=== PATIENT | male | born 1955 | race Two or more races ===

== ENCOUNTER 2019-05-30 12:13 | Inpatient (IN) | payer MEDICAID ==
[~2019-05-30] VITALS: Ht 170.2 cm; Wt 86.9 kg
[2019-05-30 13:45] LABS: Basophils # (auto) 0.1 10 ^3/uL (0-0.2); Eosinophils # (auto) 0.2 10 ^3/uL (0-0.8); Eosinophils % (auto) 2.6 % (0.0-7.0); Hematocrit 38.7 % (41.0-53.0); Hemoglobin 13.2 g/dL (13.5-17.5); Lymphocytes # (auto) 1.9 10 ^3/uL (0.4-5.4); Lymphocytes % (auto) 20.5 % (10.0-50.0); Mean Corpuscular Hemoglobin 31.1 pg (28.0-32.0); Mean Corpuscular Hgb Conc. 34.1 g/dL (32.0-36.0); Mean Corpuscular Volume 91.2 fL (80.0-100.0); Monocytes # (auto) 0.7 10 ^3/uL (0-1.3); Monocytes % (auto) 7.7 % (0.0-12.0); Neutrophils # (auto) 6.4 10 ^3/uL (1.6-8.6); Neutrophils % (auto) 68.2 % (37.0-80.0); Platelet Count (auto) 243 10^3/uL (140-450); Red Blood Cells 4.25 10^6/uL (4.5-5.90); Red Cell Distribution Width 15.3 % (11.8-14.3); White Blood Cell 9.3 10^3/uL (4.4-10.8)
[2019-05-30] MEDS ORDERED: METOPROLOL TARTRATE 1MG/1ML-5ML VIAL IV ONE ×3 (14:14→15:45)
[2019-05-30 14:29] LABS: Albumin 2.9 g/dL (3.4-5.0); BUN/Creatinine Ratio 21.4; Calcium 8.8 mg/dL (8.5-10.1); Potassium 4.9 mmol/L (3.5-5.1)
[2019-05-30] MEDS ORDERED: NITROGLYCERIN 0.4 MG SL TAB SL PRN (14:30)
[2019-05-30] MEDS ORDERED: ONDANSETRON HCL 4 MG/2 ML VIAL IV PRN (14:30)
[2019-05-30] MEDS ORDERED: DEXTROSE (50%) 50ML SYRG IV PRN ×2 (14:30→15:45)
[2019-05-30] MEDS ORDERED: ACETAMINOPHEN 500 MG TAB PO PRN (14:30)
[2019-05-30] MEDS ORDERED: HYDROcodone-ACET 5/325MG TAB PO PRN (14:30)
[2019-05-30] MEDS ORDERED: MORPHINE SULF INJ 2 MG/ML SYRINGE 1ML IV PRN ×2 (14:30)
[2019-05-30] MEDS ORDERED: METOPROLOL TARTRATE 25 MG TAB PO SCH (14:30)
[2019-05-30 14:34] LABS: Bilirubin, Total 0.6 mg/dL (0.2-1.0); Total Protein 6.9 g/dL (6.4-8.2)
[2019-05-30] MEDS ORDERED: cefTRIAXone 1GM/50ML D5W 50 ML IV ONE (14:45)
[2019-05-30] MEDS: ASPirin 81 mg TAB PO SCH (14:49)
[2019-05-30 14:53] LABS: Cholesterol 167 mg/dL (< 200)
[2019-05-30 14:56] LABS: HDL Cholesterol 58 mg/dL (40-59); LDL Cholesterol 88 mg/dL (< 100); Triglycerides 82 mg/dL (< 150)
[2019-05-30] MEDS: InsuLIN REG 1unit/0.01ml Soln (100units/ml) SC SCH ×2 (15:58→20:38)
[2019-05-30] MEDS: ACCU-CHEK COMFORT CURVE STRIP VI SCH ×2 (15:59→20:37)
[2019-05-30] MEDS ORDERED: DIGOXIN (250MCG/ML) 2 ML AMPULE IV ONE (16:45)
[2019-05-30] MEDS ORDERED: ACCU-CHEK COMFORT CURVE STRIP VI SCH (17:00)
[2019-05-30] MEDS ORDERED: InsuLIN REG 1unit/0.01ml Soln (100units/ml) SC SCH (17:00)
[2019-05-30] MEDS ORDERED: AMIODARONE HCL 150 MG in D5W 5% 100 ML IV ONE (17:15)
[2019-05-30] MEDS ORDERED: MAGNESIUM SULFATE 1GM/100ML 100 ML IV ONE (18:00)
[2019-05-30] MEDS ORDERED: AMIODARONE 450mg/250ml AE 250 ML IV SCH (18:01)
[2019-05-30] MEDS ORDERED: FUROSEMIDE 20 MG/2 ML VIAL IV ONE (18:15)
--- NOTE | 2019-05-30 18:42 | NUR ---
Pt Arrived on Unit Pt arrived on unit from ED. Pt was able to ambulate to bed without difficulty. Pt is currently a/ox4 with no s/s of distress or SOB. Pt is currently on amiodarone drip at 16mL/HR. Safety measures maintained with call light within reach, bed in lowest position and side rails up. Will continue to monitor.
[2019-05-30 18:45] VITALS: BP 129/90
--- NOTE | 2019-05-30 18:57 | NUR ---
Wound Pictures Wound pictures taken of pt's L calf for reference. Placed Wound consult.
--- NOTE | 2019-05-30 19:02 | NUR ---
Admission Unable to complete admission due to lack of time. Will endorse to NOC RN.
[2019-05-30 19:29] VITALS: BP 110/60
--- NOTE | 2019-05-30 19:31 | NUR ---
Opening Shift Note Received report and assumed care of patient. Patient is awake and alert. No signs or symptoms of distress noted, patient currently denies pain. Instructed patient on plan of care and to call for assistance as needed. Will continue to monitor.
--- NOTE | 2019-05-30 20:24 | NUR ---
Heart Rate Status Spoke with Hospitalist regarding patient heart rate status from afib 120s-130s to sinus rhythm 60s. Patient is currently on Amiodarone drip, no new orders at this time. Will continue to monitor.
[2019-05-30 21:52] VITALS: BP 110/60
[2019-05-30] MEDS: CARVEDILOL 12.5 MG TAB PO SCH (22:00)
[2019-05-30] MEDS: ATORVASTATIN 20 MG TAB PO SCH (22:20)
[2019-05-30] MEDS: CLINDAMYCIN 300MG IV 50 ML IV SCH (23:34)
[2019-05-31] MEDS: AMIODARONE 450mg/250ml AE 250 ML IV SCH ×2 (00:15→15:18)
[2019-05-31] MEDS: ACCU-CHEK COMFORT CURVE STRIP VI SCH ×6 (00:18→20:25)
[2019-05-31] MEDS: InsuLIN REG 1unit/0.01ml Soln (100units/ml) SC SCH ×6 (03:52→20:26)
[2019-05-31 04:52] VITALS: BP 121/71
[2019-05-31 05:49] LABS: Basophils # (auto) 0 10 ^3/uL (0-0.2); Basophils % (auto) 0.4 % (0.0-2.0); Eosinophils # (auto) 0.4 10 ^3/uL (0-0.8); Eosinophils % (auto) 4.1 % (0.0-7.0); Hematocrit 36.7 % (41.0-53.0); Hemoglobin 12.7 g/dL (13.5-17.5); Lymphocytes # (auto) 2.6 10 ^3/uL (0.4-5.4); Lymphocytes % (auto) 29.1 % (10.0-50.0); Mean Corpuscular Hemoglobin 30.8 pg (28.0-32.0); Mean Corpuscular Hgb Conc. 34.4 g/dL (32.0-36.0); Mean Corpuscular Volume 89.5 fL (80.0-100.0); Monocytes # (auto) 0.7 10 ^3/uL (0-1.3); Monocytes % (auto) 8.1 % (0.0-12.0); Neutrophils # (auto) 5.2 10 ^3/uL (1.6-8.6); Neutrophils % (auto) 58.3 % (37.0-80.0); Nucleated Red Blood Cells % 0.1 %; Platelet Count (auto) 232 10^3/uL (140-450); Red Blood Cells 4.11 10^6/uL (4.5-5.90); Red Cell Distribution Width 15.3 % (11.8-14.3); White Blood Cell 8.9 10^3/uL (4.4-10.8)
[2019-05-31 06:02] LABS: BUN/Creatinine Ratio 23.9; Calcium 8.5 mg/dL (8.5-10.1); Potassium 4.6 mmol/L (3.5-5.1)
[2019-05-31] MEDS: CLINDAMYCIN 300MG IV 50 ML IV SCH ×3 (06:02→21:39)
--- NOTE | 2019-05-31 07:16 | NUR ---
OPENING SHIFT NOTE Assumed care of patient from poultry breeder RN. Patient is alert and oriented x4, no signs of distress noted. Patient was updated on the plan of care and verbalized understanding. Bed is locked, in the lowest position, side rails up x2 and call light is in reach. Patient was encouraged to call for assistance as needed.
--- NOTE | 2019-05-31 08:10 | NUR ---
PAGED JOVANNY regarding patient HR and amiodarone drip. Patient HR is in the 50s. Patient was scheduled for a stress test today, stress lab called and said they would not be able to do the test because patient is on the amiodarone drip. Awaiting call back from Jovanny.
[2019-05-31] MEDS: cefTRIAXone 1GM/50ML D5W 50 ML IV SCH (08:39)
[2019-05-31 09:27] VITALS: BP 110/69
--- NOTE | 2019-05-31 09:31 | NUR ---
PAGEIrma PETTY to update on patient status. awaiting call back.
[2019-05-31] MEDS: CARVEDILOL 12.5 MG TAB PO SCH (10:00)
[2019-05-31] MEDS: FLORASTOR (S. BOULARDII) 250 MG CAP PO SCH (10:04)
[2019-05-31] MEDS: ASPirin 81 mg TAB PO SCH (10:04)
[2019-05-31] MEDS: FAMOTIDINE 20 MG TAB PO SCH (10:04)
[2019-05-31] MEDS: FUROSEMIDE 100 MG/10ML VIAL IV SCH (10:04)
[2019-05-31] MEDS: CLOPIDOGREL BISULFATE 75 MG TAB PO SCH (10:05)
--- NOTE | 2019-05-31 10:30 | NUR ---
WOUND CARE NOTE: IN TO SEE PATIENT AT THIS TIME PER WOUND CARE CONSULT REQUEST. PATIENT RECENTLY ADMITTED TO [facility] WITH DIAGNOSIS OF AFIB/RVR. PATIENT HAS CURRENT SAUL SCORE OF 18. PATIENT NOTED TO HAVE A SMALL VENOUS STASIS ULCER TO THE LEFT MEDIAL CALF. WOUND PHOTO TAKEN BY BEDSIDE NURSE AT THAT TIME. PATIENT STATES THAT HE NOTICED THE WOUND SEVERAL WEEKS AGO. HE DENIES EVER HAVING STASIS ULCERS IN THE PAST. PATIENT'S WOUND MEASURES 1 X 1 CM. WOUND IS FULL THICKNESS, PALE RED WOUND BED, SCANT SEROUS DRAINAGE. PERIWOUND IS PINK, MILD EDEMA NOTED. APPLIED THERAHONEY, OPTIFOAM GENTLE DRESSING. ELEVATED LEFT CALF UP ONTO PILLOW FOR EDEMA CONTROL. PATIENT EDUCATED IN WOUND CARE AT THIS TIME, PATIENT VERBALIZED UNDERSTANDING. NO OTHER SKIN INTEGRITY ISSUES NOTED. RECOMMEND: ELEVATION OF LLE UP ONTO PILLOWS, Q 3 DAY/PRN DRESSING CHANGE TO WOUND ON LLE, DIETARY CONSULT, SKIN/WOUND CARE PLAN, CONTINUED MONITORING BY WOUND CARE TEAM. Addendum: 05/31/19 at 1534 by Denice Mayo RN Amended: Links added.
--- NOTE | 2019-05-31 10:49 | NUR ---
Pt is currently listed as having no current insurance. Pt states they are currently unemployed. Discussed with patient eligibility options for medical coverage bases on their on their current situation . Pt referred 5to Kee Mchugh, [facility] Consulant to assist with process for [facility] insurance coverage. Advised pt that additional information regarding d/c planning could be provided prior 5to their discharge. Will follow up with Kee regarding the insurance status. Addendum: 05/31/19 at 1057 by KENDAL WOOD SS Amended: Links added.
--- NOTE | 2019-05-31 12:35 | NUR ---
CALL FROM [facility] Patient is unable to have stress test done today, patient is currently receiving amiodarone IV drip. Stress test will be rescheduled for tomorrow.
[2019-05-31 12:41] VITALS: BP 121/75
--- NOTE | 2019-05-31 13:02 | NUR ---
MARIFER AT BEDSIDE updated on the patient status, plan of care reviewed with the patient and verbalized understanding. New orders for diet, no other orders received.
--- NOTE | 2019-05-31 15:18 | NUR ---
IV INFILTRATION when changing the amiodarone iv bag as ordered, hard swelling noted on patient's left forearm at IV site. IV infusion stopped, changed to right forearm IV site. Called pharmacy for amiodarone infiltration protocol. Pharmacist recommended cold compress for 20 minutes, will follow through.
--- NOTE | 2019-05-31 15:22 | NUR ---
IV removal IV to the left forearm discontinued with clean sterile technique, catheter fully intact. Pressure dressing applied to site. Patient tolerated well.
[2019-05-31 17:05] VITALS: BP 119/58
[2019-05-31] MEDS ORDERED: CARVEDILOL 12.5 MG TAB PO SCH (18:00)
--- NOTE | 2019-05-31 19:19 | NUR ---
CLOSING SHIFT NOTE Care endorsed to overnight cashier RN. Patient is eating dinner, no signs of distress noted.
--- NOTE | 2019-05-31 21:10 | NUR ---
IV removal/insertion 22g IV to the right forearm reddened. Discontinued 22g IV with clean technique, catheter tip fully intact. Pressure dressing applied to site. NOTE: Inserted 20g IVs to the Right and Left forearm. Patient tolerated procedure well.
[2019-05-31] MEDS: ATORVASTATIN 20 MG TAB PO SCH (21:39)
[2019-05-31 22:00] VITALS: BP 134/82
[2019-06-01] MEDS: ACCU-CHEK COMFORT CURVE STRIP VI SCH ×4 (00:43→11:55)
[2019-06-01] MEDS: InsuLIN REG 1unit/0.01ml Soln (100units/ml) SC SCH ×4 (04:00→12:01)
[2019-06-01 05:30] VITALS: BP 116/75
[2019-06-01] MEDS: CLINDAMYCIN 300MG IV 50 ML IV SCH ×2 (06:05→14:06)
[2019-06-01] MEDS: AMIODARONE 450mg/250ml AE 250 ML IV SCH (06:44)
--- NOTE | 2019-06-01 08:00 | NUR ---
ASSESSMENT NOTE PT IS ALERT ORIENTED X4, RESTING IN BED COMFORTABLY, NO DISTRESS NOTED, ABLE TO SELF REPOSITIO AND VERBALIS HIS DEMANDS, PAIN 0/10, CALL LIGHT WITHIN REACH
[2019-06-01] MEDS ORDERED: ADENOSINE 73 MG in GIVE UN-DILUTED 0 ML IV ONE (08:30)
--- NOTE | 2019-06-01 08:30 | NUR ---
OUT TO [facility] VIA WHEELCHAIR FOR STRESS TEST PT ALERT ORIENTED X4,NO DISTRESS NOTED, VS ARE STABLE
[2019-06-01 09:01] VITALS: BP 128/84
[2019-06-01] MEDS ORDERED: CARVEDILOL 3.125 MG TAB PO SCH (10:00)
--- NOTE | 2019-06-01 10:54 | NUR ---
PT IS BACK TO HIS ROOM, NO DISTRESS NOTED, CALL LIGHT WITHIN REACH
[2019-06-01] MEDS: ASPirin 81 mg TAB PO SCH (11:05)
[2019-06-01] MEDS: cefTRIAXone 1GM/50ML D5W 50 ML IV SCH (11:05)
[2019-06-01] MEDS: FLORASTOR (S. BOULARDII) 250 MG CAP PO SCH (11:06)
[2019-06-01] MEDS: FAMOTIDINE 20 MG TAB PO SCH (11:06)
[2019-06-01] MEDS: CLOPIDOGREL BISULFATE 75 MG TAB PO SCH (11:06)
[2019-06-01] MEDS: FUROSEMIDE 100 MG/10ML VIAL IV SCH (11:07)
--- NOTE | 2019-06-01 11:11 | NUR ---
NUTRITION ASSESSMENT NOTES Please refer to link notes of nutrition screen form filed under the intervention section of the plan of care for further details. Est. Energy Needs: [id number] kcal (17-20 kcal/kg BW). Est. Protein Needs: 86-108 gms/day (1.2-1.5 gms/kg Adj.BW). Will continue to monitor pertinent labs and reassess nutrient need prn Addendum: 06/01/19 at [address] Amended: Links added.
[2019-06-01 13:00] VITALS: BP 129/72
--- NOTE | 2019-06-01 15:00 | NUR ---
PT CALLED ME STATED I HAVE SOME FAMILY NOW HERE ARE IN THEIR WAY TO [place] AND THERE IS NO BODY WILL PICK HIM UP TOMORROW, PT MADE AWARE THAT HIS MEDICAL TREATMENT HERE NOT COMPLETELY FINISHED YET, AWAITING FOR THE STRESS TEST RESULTS AND THE ZOLL TEST, PT CONTINUE INSISTING TO GO HOME, PAGE DR CAICEDO
--- NOTE | 2019-06-01 15:05 | NUR ---
DR CAICEDO CALLED BACK MADE AWARE OF THE LATEST UPDATE, SAID THAT HE WILL SEE PT TOMORROW, AMA IF PT INSISTED TO LEAVE
--- NOTE | 2019-06-01 15:13 | NUR ---
JOVANNY CLINICAL STAFF ANESTHESIOLOGIST AT BED SIDE TRYING TO CONVINCE PT TO STAY FOR THE ZOLL VEST, PT VERBALIS UNDERSTANDING BUT REFUSED TO STAY
--- NOTE | 2019-06-01 15:39 | NUR ---
AMA Note CADENCE GONZALEZ states they want to leave the hospital Against Medical Advice (AMA). Patient encouraged to stay for further treatment/stabilization. MARIFER JOHNS MD notified of patient's wishes. Patient advised of the risks and benefits of leaving AMA. Patient verbalized understanding. Patient encouraged to return to the ER if symptoms do not improve or worsen.
[2019-06-01 16:10] LABS: Free T3 2.38 pg/mL (2.3-4.2); Free T4 (Free Thyroxine) 1.06 ng/dL (0.89-1.76)
== END 2019-06-01 15:40 | disposition left against medical advice (07) | DRG 383 ==
LOC: ER 12:13 → TELE 12:14 → TELE-CENTR 18:42
PROVIDERS: ADMIT Nurse Practitioner Acute Care; ATTEND Family Medicine
DX: L03.116 Cellulitis of left lower limb (principal); I50.21 Acute systolic (congestive) heart failure; D68.59 Other primary thrombophilia; I48.91 Unspecified atrial fibrillation; E11.9 Type 2 diabetes mellitus without complications; I25.10 Atherosclerotic heart disease of native coronary artery without angina pectoris; D64.9 Anemia, unspecified; E78.00 Pure hypercholesterolemia, unspecified; Z53.29 Procedure and treatment not carried out because of patient's decision for other reasons; I50.9 Heart failure, unspecified; I11.0 Hypertensive heart disease with heart failure; I50.82 Biventricular heart failure; Z79.4 Long term (current) use of insulin; Z95.5 Presence of coronary angioplasty implant and graft
CPT/HCPCS: 36415; 71046; 73700; 78452; 80048; 80053; 80061; 82962; 83036; 83605; 83735; 83880; 84439; 84443; 84481; 84484; 85025; 87040; 93005; 93017; 93306; G0378; J0153; J0696; J1815; J3490; J7060